=== PATIENT | male | born 1985 | race Caucasian/White ===

== ENCOUNTER 2016-12-30 02:19 | Emergency (ER) | payer BC ==
[~2016-12-30] VITALS: Ht 180.3 cm; Wt 93.2 kg
[~2016-12-30 02:19] MED LIST: CEPHALEXIN500 M1 PO; NORCO 325 MG-51 TAB PO; SUDAFED 12HR120 MG PO; ZYRTEC ALLERGY10 MG PO
[2016-12-30] MEDS ORDERED: SINGULAIR 110 MG/TAB PO (02:26)
[2016-12-30] MEDS ORDERED: BENADRYL (02:27)
[2016-12-30] MEDS ORDERED: PREMIERPRO RX5 MG/GM OP (03:35)
[2016-12-30 03:43] VITALS: BP 158/87
== END 2016-12-30 03:42 | disposition home or self-care (01) ==
LOC: ED 02:19
DX: H16.133 Photokeratitis, bilateral (principal); T15.02XA Foreign body in cornea, left eye, initial encounter; T15.01XA Foreign body in cornea, right eye, initial encounter; X58.XXXA Exposure to other specified factors, initial encounter; J30.2 Other seasonal allergic rhinitis; F17.210 Nicotine dependence, cigarettes, uncomplicated

== ENCOUNTER → 2017-06-07 | Outpatient (CLI) | payer OTHER ==
[~2017-06-07] MED LIST changes: +BENADRYL; +PREMIERPRO RX5 MG/GM OP; +SINGULAIR 110 MG/TAB PO
== END ==
LOC: RAD 10:05
DX: M25.512 Pain in left shoulder (principal)

== ENCOUNTER 2018-06-19 14:43 | Emergency (ER) | payer OTHER ==
[~2018-06-19] VITALS: Ht 177.8 cm; Wt 86.4 kg
[2018-06-19] MEDS ORDERED: CEPHALEXIN500 M1 PO (15:45)
[2018-06-19 15:52] VITALS: BP 130/90
== END 2018-06-19 15:50 | disposition home or self-care (01) ==
LOC: ED 14:43
DX: S61.226A Laceration with foreign body of right little finger without damage to nail, initial encounter (principal); W31.1XXA Contact with metalworking machines, initial encounter; Y99.0 Civilian activity done for income or pay; F17.200 Nicotine dependence, unspecified, uncomplicated